=== PATIENT | male | born 1955 | race Caucasian/White ===

== ENCOUNTER 2020-07-24 07:13 | Day surgery (SDC) | payer BC ==
[~2020-07-24] VITALS: Ht 177.8 cm; Wt 107.4 kg
[~2020-07-24 07:13] MED LIST: ALBU8HFA2 INH; ATOR20 PO; Aspir 8181 MG PO; DILT120 PO; DOXA2 PO
--- NOTE | 2020-07-24 07:47 | NUR ---
07/24/20 0747 GWYN POWELL ONE ATTEMPT BY KATHY IN MISSED ONE SUCCESSFUL IN RAC PT TOW
--- NOTE | 2020-07-24 08:38 | NUR ---
07/24/20 0838 Malika Wang SIMETHICONE USED DURING PROCEDURE.
== END 2020-07-24 09:55 | disposition home or self-care (01) ==
LOC: ORSCSDS 07:13
PROVIDERS: Student in an Organized Health Care Education/Training Program
PROC: 0DBN8ZX Excision of Sigmoid Colon, Via Natural or Artificial Opening Endoscopic, Diagnostic (ICD-10-PCS; principal; 2020-07-24 08:30)
PROC: 0DBH8ZX Excision of Cecum, Via Natural or Artificial Opening Endoscopic, Diagnostic (ICD-10-PCS; principal; 2020-07-24 08:30)
PROC: 0DBK8ZX Excision of Ascending Colon, Via Natural or Artificial Opening Endoscopic, Diagnostic (ICD-10-PCS; principal; 2020-07-24 08:30)
DX: Z12.11 Encounter for screening for malignant neoplasm of colon (principal); Z86.010 Personal history of colon polyps; D12.2 Benign neoplasm of ascending colon; D12.0 Benign neoplasm of cecum; K63.5 Polyp of colon; K57.30 Diverticulosis of large intestine without perforation or abscess without bleeding; I10 Essential (primary) hypertension; E78.5 Hyperlipidemia, unspecified; J44.9 Chronic obstructive pulmonary disease, unspecified; I48.0 Paroxysmal atrial fibrillation; Z87.891 Personal history of nicotine dependence; E66.9 Obesity, unspecified; Z68.34 Body mass index [BMI] 34.0-34.9, adult; Z79.899 Other long term (current) drug therapy
CPT/HCPCS: 88305; J0330; J0461; J2405; J2704; J7120